=== PATIENT | male | born 1975 | race Caucasian/White ===

== ENCOUNTER 2016-11-18 09:35 | Emergency (ER) | payer BC ==
--- NOTE | 2016-11-18 09:46 | CPEKG ---
Heart Rate: 72 RR Interval: 833 P-R Interval: 144 QRSD Interval: 94 QT Interval: 376 QTC Interval: 412 P [place]: 44 QRS [place]: -4 T Wave [place]: 13 EKG Severity - NORMAL ECG - EKG Impression: SINUS RHYTHM Electronically Signed By: Louis Holguin 18-Nov-2016 15:54:36
--- NOTE | 2016-11-18 10:01 | EDPHY ---
H & P Time Seen by Provider: 11/18/16 09:47 HPI/ROS: Chief complaint. Chest pain HPI. 41-year-old male presents emergency department with chest tightness and sense of heart racing at about 8:00 a.m. this morning. Tightness to the left anterior chest but no radiation. Slight shortness of breath. Continues to feels slightly tight and sense of heart racing. No recent fever or cough. No abdominal pain. No unusual leg pain or swelling. Increased stress at work this week. No aspirin prior to arrival ROS Constitutional. no fever/chills, no weakness Eyes. no problems with vision ENT. no sore throat, no nasal drainage Cardiovascular. Chest pain Respiratory. Shortness of breath Abdominal. no abdominal pain, no nausea/vomiting, no diarrhea . no problems urinating MS. no calf pain/swelling, no neck/back pain, no joint pain Skin. no rash Lymph. no swollen glands Neuro. no headache, no dizziness, no difficulty walking or with speech Past Medical/Surgical History: Healthy Father [place] in his 40s Social History: , nonsmoker, no alcohol Smoking Status: Never smoked Physical Exam: General Appearance: Alert well-developed male mild distress vital signs are stable Eyes: Pupils equal and round no pallor or injection. ENT, Mouth: Mucous membranes are moist. Respiratory: There are no retractions, lungs are clear to auscultation. Cardiovascular: Regular rate and rhythm. Gastrointestinal: Abdomen is soft and nontender, no masses, bowel sounds normal. Neurological: Awake and alert, sensory and motor exams grossly normal. Skin: Warm and dry, no rashes. Musculoskeletal: Neck is supple nontender. Extremities symmetrical, full range of motion. Psychiatric: Patient is oriented X 3, there is no agitation. Constitutional: Initial Vital Signs Temperature (C) 36.7 C 11/18/16 09:36 Heart Rate 80 11/18/16 09:36 Respiratory Rate 18 11/18/16 09:36 Blood Pressure 135/91 H 11/18/16 09:36 O2 Sat (%) 95 11/18/16 09:36 O2 Delivery Mode Room Air Allergies/Adverse Reactions: Sulfa (Sulfonamide Antibiotics) Allergy (Verified 11/18/16 09:36) Home Medications: Medication Instructions Recorded Vitamin B Complex [B Complex] 1 each PO DAILY 11/18/16 Medical Decision Making - Diagnostics EKG Interpretation: EKG interpreted by me shows normal sinus rhythm with normal interval. There is left axis deviation. QRS is otherwise normal there is no significant ST elevation or depression. No arrhythmia. The rate is 72. No change from previous EKG in January 2015 Imaging Results: Imaging Impressions Chest X-Ray 11/18/16 10:16 Impression: Negative portable chest. Procedures: IV normal saline, monitor. Aspirin in the ED ED Course/Re-evaluation: On re-evaluation patient is stable. The patient and I discussed treatment plan including recommendation for admission and further evaluation he expresses understanding and agreement Consulted discussed case with Dr. Campbell, hospitalist who agrees to the admission About 15 or 20 minutes later the patient decides he would like to be treated as an outpatient. He agrees to repeat testing. The patient and I discussed risks and benefits of admission versus outpatient management. He expresses understanding and agreement EKG and troponin testing are repeated at 4:00 a.m. after patient's symptoms began. These are normal I consulted and discussed the case with Dr. Wilson, cardiology, who will see the patient in the office to pursue further testing. On re-evaluation patient is happy with this plan and would still like to be discharged. He has encouraged to return for any worsening symptoms Differential Diagnosis: This certainly could be related to stress. I considered acute coronary syndrome. At this point no evidence of acute [place]. - Data Points Laboratory Results: Laboratory Results 11/18/16 09:46 11/18/16 09:46 11/18/16 11/18/16 11/18/16 11:57 09:46 09:46 WBC RBC Hgb Hct MCV MCH MCHC RDW Plt Count MPV Neut % (Auto) Lymph % (Auto) [place] % (Auto) Eos % (Auto) Baso % (Auto) Nucleat RBC Rel Count Absolute Neuts (auto) Absolute Lymphs (auto) Absolute Monos (auto) Absolute Eos (auto) Absolute Basos (auto) Absolute Nucleated RBC Immature Gran % Immature Gran # D-Dimer < 0.27 ug/mLFEU ug/mLFEU (0.00-0.50) Sodium 139 mEq/L mEq/L (134-144) Potassium 4.6 mEq/L mEq/L (3.5-5.2) Chloride 104 mEq/L mEq/L (97-110) Carbon Dioxide 24 mEq/l mEq/l (22-31) Anion Gap 11 mEq/L mEq/L (8-16) BUN 14 mg/dL mg/dL (7-23) Creatinine 1.0 mg/dL mg/dL (0.7-1.3) Estimated GFR > 60 Glucose 108 mg/dL H mg/dL (70-100) Calcium 9.7 mg/dL mg/dL (8.5-10.4) Troponin I < 0.012 ng/mL ng/mL < 0.012 ng/mL ng/mL (0.000-0.034) (0.000-0.034) 11/18/16 09:46 WBC 4.22 10^3/uL 10^3/uL (3.80-9.50) RBC 4.32 10^6/uL L 10^6/uL (4.40-6.38) Hgb 14.8 g/dL g/dL (13.7-17.5) Hct 42.7 % % (40.0-51.0) MCV 98.8 fL fL (81.5-99.8) MCH 34.3 pg H pg (27.9-34.1) MCHC 34.7 g/dL g/dL (32.4-36.7) RDW 11.9 % % (11.5-15.2) Plt Count 198 10^3/uL 10^3/uL (150-400) MPV 9.5 fL fL (8.7-11.7) Neut % (Auto) 60.0 % % (39.3-74.2) Lymph % (Auto) 28.7 % % (15.0-45.0) [place] % (Auto) 9.2 % % (4.5-13.0) Eos % (Auto) 1.2 % % (0.6-7.6) Baso % (Auto) 0.7 % % (0.3-1.7) Nucleat RBC Rel Count 0.0 % % (0.0-0.2) Absolute Neuts (auto) 2.53 10^3/uL 10^3/uL (1.70-6.50) Absolute Lymphs (auto) 1.21 10^3/uL 10^3/uL (1.00-3.00) Absolute Monos (auto) 0.39 10^3/uL 10^3/uL (0.30-0.80) Absolute Eos (auto) 0.05 10^3/uL 10^3/uL (0.03-0.40) Absolute Basos (auto) 0.03 10^3/uL 10^3/uL (0.02-0.10) Absolute Nucleated RBC 0.00 10^3/uL 10^3/uL (0-0.01) Immature Gran % 0.2 % % (0.0-1.1) Immature Gran # 0.01 10^3/uL 10^3/uL (0.00-0.10) D-Dimer Sodium Potassium Chloride Carbon Dioxide Anion Gap BUN Creatinine Estimated GFR Glucose Calcium Troponin I Medications Given: Discontinued Medications Aspirin (Aspirin) 324 mg PO EDNOW ONE Stop: 11/18/16 10:16 Last Admin: 11/18/16 10:27 Dose: 324 mg Departure - Departure Disposition: Home, Routine, Self-Care Clinical Impression: Chest pain Qualifiers: Chest pain type: unspecified Qualified Code(s): R07.9 - Chest pain, unspecified Condition: Good Instructions: Chest Pain (ED) Additional Instructions: Easy activity. Return for worsening chest discomfort or trouble breathing. You have an appointment November [address] Wilson at 1:45 p.m. at their [place] office. Take 81 mg aspirin daily for circulation. Referrals: BEE SINGH [Other] - As per Instructions Oziel Wilson MD [Medical Doctor] - As per Instructions
[2016-11-18] MEDS ORDERED: ASPIRIN 81 MG CHEWABLE TAB PO ONE (10:15)
[2016-11-18 10:21] LABS: % IMMATURE GRANULYOCYTES 0.2 % (0.0-1.1); ABSOLUTE IMMATURE GRANULOCYTES 0.01 10^3/uL (0.00-0.10); ADD DIFF? NO; ADD MORPH? NO; ADD SCAN? NO; ATYPICAL LYMPHOCYTE FLAG 0 (0-99); FRAGMENT RBC FLAG 0 (0-99); HEMATOCRIT 42.7 % (40.0-51.0); HEMOGLOBIN 14.8 g/dL (13.7-17.5); LEFT SHIFT FLG 0 (0-99); LIPEMIA HEMOLYSIS FLAG 90 (0-99); MEAN CELL HEMOGLOBIN 34.3 pg (27.9-34.1); MEAN CELL HEMOGLOBIN CONCENTR. 34.7 g/dL (32.4-36.7); MEAN CELL VOLUME 98.8 fL (81.5-99.8); MEAN PLATELET VOLUME 9.5 fL (8.7-11.7); PLATELET CLUMPS FLAG 10 (0-99); PLATELET COUNT 198 10^3/uL (150-400); RED BLOOD CELL COUNT 4.32 10^6/uL (4.40-6.38); RED CELL DISTRIBUTION WIDTH 11.9 % (11.5-15.2)
[2016-11-18 10:31] LABS: ANION GAP 11 mEq/L (8-16); CALCIUM 9.7 mg/dL (8.5-10.4); CARBON DIOXIDE 24 mEq/l (22-31); CHLORIDE 104 mEq/L (97-110); GLOMERULAR FILTRATION RATE > 60; GLUCOSE 108 mg/dL (70-100); POTASSIUM 4.6 mEq/L (3.5-5.2); SODIUM 139 mEq/L (134-144)
[2016-11-18 10:43] LABS: TROPONIN I < 0.012 ng/mL (0.000-0.034)
[2016-11-18 11:02] VITALS: RESP 16; TEMP 98.6
--- NOTE | 2016-11-18 12:16 | CPEKG ---
Heart Rate: 76 RR Interval: 789 P-R Interval: 144 QRSD Interval: 86 QT Interval: 376 QTC Interval: 423 P [place]: 47 QRS [place]: -8 T Wave [place]: -4 EKG Severity - ABNORMAL ECG - EKG Impression: SINUS RHYTHM EKG Impression: LEFT VENTRICULAR HYPERTROPHY EKG Impression: BORDERLINE T ABNORMALITIES, INFERIOR LEADS Electronically Signed By: Louis Holguin 18-Nov-2016 15:54:32
[2016-11-18 13:21] VITALS: BP 139/91; PULSE 76; O2SAT 94
== END 2016-11-18 13:21 | disposition home or self-care (01) ==
LOC: UNDOADMIN 11:29
DX: R07.9 Chest pain, unspecified (principal)